=== PATIENT | female | born 1975 | race Caucasian/White ===

== ENCOUNTER → 2017-11-01 | Outpatient (CLI) | payer OTHER ==
[~2017-11-01] MED LIST: 0.9 % SODIUM CHLORIDE 10 ML VIAL ONE; IOHEXOL 300 MG/ML 50 ML VIAL. ONE; LIDOCAINE 1% PF 30 ML VIAL. ONE; methylPREDNISolone ACETATE 80 MG/ML VIAL. ONE
== END | disposition home or self-care (01) ==
LOC: SURG 11:24
PROVIDERS: ATTEND Anesthesiology Pain Medicine
DX: M54.16 Radiculopathy, lumbar region (principal); M19.90 Unspecified osteoarthritis, unspecified site; F17.210 Nicotine dependence, cigarettes, uncomplicated; Z79.899 Other long term (current) drug therapy
CPT/HCPCS: 62323; J1040; J2001; Q9967; 99203

== ENCOUNTER 2018-02-05 14:29 | Emergency (ER) | payer OTHER ==
[~2018-02-05] VITALS: Ht 167.6 cm; Wt 86.2 kg
[2018-02-05 14:37] VITALS: BP 148/93
--- NOTE | 2018-02-05 16:33 | ED.ADGEN ---
Past History Past Medical History: No Pertinent History Past Surgical History: No Surgical History Alcohol Use: None Drug Use: None Adult General Chief Complaint Chief Complaint Hand laceration [facility] Patient is a 42-year-old female who presents with 1 cm laceration above extensor left fourth PIP joint and 2.5 cm superficial extensor surface of left third finger from about her enough while removing cocking in the kitchen. Tetanus is up-to-date. Bleeding is controlled. No other symptoms or complaints. Injury occurred just prior to that not not the foot of the hand that was earlier today. [] Review of Systems Review of Systems ROS as per HPI All other systems were reviewed and found to be within normal limits, except as documented in this note. Allergies Allergies Allergies Coded Allergies Type Severity Reaction Last Updated Verified No Known Drug Allergies 02/05/18 No Physical Exam Physical Exam Constitutional: Well developed, well nourished, no acute distress, non-toxic appearance. [] HENT: Normocephalic, atraumatic, bilateral external ears normal, oropharynx moist, no oral exudates, nose normal. [] Extremities: 1 cm, curvilinear laceration above left fourth PIP joint, full thickness, no joint capsule penetration, bleeding controlled. Wound is clean. 2.5 superficial clean linear laceration over dorsum of the third finger. Bleeding controlled. [] Neurologic: Alert and oriented X 3, normal motor function, normal sensory function, no focal deficits noted. [] Psychologic: Affect normal, judgement normal, mood normal. [] Current Patient Data Vital Signs Vital Signs Date Time Temp Pulse Resp B/P (MAP) Pulse Ox O2 Delivery O2 Flow Rate FiO2 02/05/18 14:37 98.1 86 18 95 Room Air EKG EKG [] Radiology/Procedures Radiology/Procedures [Laceration repair procedure note. Patient's lacerations were copiously irrigated and explored, left fourth finger was closed with 2 simple and interrupted, 4-0 nylon sutures. Good wound approximation and mobility in joint. Left third finger laceration was and closed with wound adhesive. Bleeding is controlled.] Course & Med Decision Making Course & Med Decision Making Pertinent Labs and Imaging studies reviewed. (See chart for details) [Wounds cleaned and closed. Typical wound care instructions given. ] Final Impression Final Impression [1. Lacerations to third and fourth left fingers.] Dragon Disclaimer Dragon Disclaimer This electronic medical record was generated, in whole or in part, using a voice recognition dictation system. MAURO WEST DO Feb 05, 2018 16:33
== END 2018-02-05 15:14 | disposition home or self-care (01) ==
LOC: ER 14:29
DX: S61.213A Laceration without foreign body of left middle finger without damage to nail, initial encounter (principal); S61.215A Laceration without foreign body of left ring finger without damage to nail, initial encounter; W45.8XXA Other foreign body or object entering through skin, initial encounter; Y93.89 Activity, other specified; Y99.8 Other external cause status; Y92.090 Kitchen in other non-institutional residence as the place of occurrence of the external cause
CPT/HCPCS: 12001; 12002; 99283; 99284

== ENCOUNTER → 2018-08-15 | Outpatient (CLI) | payer OTHER | END | disposition home or self-care (01) | LOC: SURG 08:42 | PROVIDERS: ATTEND Anesthesiology Pain Medicine | DX: M47.816 Spondylosis without myelopathy or radiculopathy, lumbar region (principal); M19.90 Unspecified osteoarthritis, unspecified site; G89.4 Chronic pain syndrome; F11.90 Opioid use, unspecified, uncomplicated | CPT/HCPCS: 99214 ==

== ENCOUNTER 2018-11-17 10:42 | Emergency (ER) | payer OTHER ==
[~2018-11-17] VITALS: Ht 154.9 cm; Wt 80.1 kg
[2018-11-17 10:45] VITALS: BP 124/70
--- NOTE | 2018-11-17 11:24 | PHYS DOC ---
Past History Past Medical History: No Pertinent History Past Surgical History: Hysterectomy Alcohol Use: None Drug Use: None Adult General Chief Complaint Chief Complaint: LACERATION/AVULSION HPI HPI 42-year-old female presents with right index finger laceration. The patient was carrying a fire hydrant and it slipped and fell onto her. It caused a laceration on the distal, volar side of her index finger. Lacerations about 1 cm long. The patient was able to get stop bleeding with simple pressure. She does not have very much pain. She does not believe the finger is broken. She denies any other injuries or complaints. Review of Systems Review of Systems Constitutional: Denies fever or chills [] Eyes: Denies change in visual acuity, redness, or eye pain [] HENT: Denies nasal congestion or sore throat [] Respiratory: Denies cough or shortness of breath [] Cardiovascular: No additional information not addressed in HPI [] GI: Denies abdominal pain, nausea, vomiting, bloody stools or diarrhea [] : Denies dysuria or hematuria [] Musculoskeletal: Denies back pain or joint pain [] Integument: Laceration right index finger[] Neurologic: Denies headache, focal weakness or sensory changes [] Endocrine: Denies polyuria or polydipsia [] All other systems were reviewed and found to be within normal limits, except as documented in this note. Allergies Allergies Allergies Coded Allergies Type Severity Reaction Last Updated Verified No Known Drug Allergies 02/05/18 No Physical Exam Physical Exam Constitutional: Well developed, well nourished, no acute distress, non-toxic appearance. [] HENT: Normocephalic, atraumatic, bilateral external ears normal, oropharynx moist, no oral exudates, nose normal. [] Eyes: PERRLA, EOMI, conjunctiva normal, no discharge. [] Neck: Normal range of motion, no tenderness, supple, no stridor. [] Cardiovascular:Heart rate regular rhythm, no murmur [] Lungs & Thorax: Bilateral breath sounds clear to auscultation [] Abdomen: Bowel sounds normal, soft, no tenderness, no masses, no pulsatile masses. [] Skin: One centimeter linear laceration right index finger, volar side.[] Back: No tenderness, no CVA tenderness. [] Extremities: No tenderness, no cyanosis, no clubbing, ROM intact, no edema. [] Neurologic: Alert and oriented X 3, normal motor function, normal sensory function, no focal deficits noted. [] Psychologic: Affect normal, judgement normal, mood normal. [] Current Patient Data Vital Signs Vital Signs Date Time Temp Pulse Resp B/P (MAP) Pulse Ox O2 Delivery O2 Flow Rate FiO2 11/17/18 10:45 76 16 98 Room Air EKG EKG [] Radiology/Procedures Radiology/Procedures [] Impressions: Preliminary interpretation: No acute fracture or dislocation is seen. Course & Med Decision Making Course & Med Decision Making Pertinent Labs and Imaging studies reviewed. (See chart for details) I was able to repair the wound with sutures. See note below for more details. A foam and aluminum splint was given to the patient for comfort and protection of the area. A Tdap was given in the ED. No fracture was seen on x-ray. The patient is stable for discharge at this time. [] Dragon Disclaimer Dragon Disclaimer This electronic medical record was generated, in whole or in part, using a voice recognition dictation system. Laceration Repair Lac Repair Indication: [1 cm linear laceration of the distal, volar, index finger; right hand] Procedure: Verbal consent was obtained from the patient for suture repair of her right index finger laceration. Wound was thoroughly irrigated with normal saline under pressure. No foreign objects were found. 1% lidocaine without epinephrine was used for anesthesia. A total of 1 mL was used. After good anesthesia was achieved, I was able to repair the laceration with 2 4-0 Ethilon sutures in interrupted fashion. There is good skin approximation. Bleeding was controlled. Wound was then covered in antibiotic ointment and a clean dressing.] . Total repaired wound length: Centimeter. Other Items: None] The patient tolerated the procedure well. Complications: [None]. Departure Departure: Impression: Primary Impression: Laceration of right index finger Disposition: HOME, SELF-CARE Condition: IMPROVED Referrals: DAVID URBANO DO, MPH (PCP) Patient Instructions: Laceration Care, Adult, [id number] Problem Qualifiers Primary Impression: Laceration of right index finger Encounter type: initial encounter Damage to nail status: without damage Foreign body presence: without foreign body Qualified Codes: S61.210A - Laceration without foreign body of right index finger without damage to nail, initial encounter MAURO CAMPOS DO Nov 17, 2018 11:24
--- NOTE | 2018-11-17 11:36 | RAD ---
Examination: FINGER(S) RIGHT History: right hand/index finger pain/laceration, pt shielded Comparison/Correlation: None Findings: Portable frontal view right hand was obtained. Lateral and oblique view of the second digit were provided. Total 3 images provided. Degenerative changes of the second digit distal insular frontal joint are present and mild. Spurring is notable involving the base of the distal phalanx. No fracture or bony destruction. No radiopaque foreign body. Impression: Degenerative changes of the second digit distal interphalangeal joint. No acute process. Electronically signed by: Sadiq Alvarez MD (11/17/2018 11:33 AM) [facility]
[2018-11-17] MEDS ORDERED: NEOMY/BACITR/POLYMYXIN OINT PACKET. TP ONE (11:45)
[2018-11-17] MEDS ORDERED: DIPHTH,PERTUSS(ACELL),TET TOX 0.5 ML DISP.SYRIN. VAX IM ONE (11:45)
== END 2018-11-17 11:38 | disposition home or self-care (01) ==
LOC: ER 10:42
DX: S61.210A Laceration without foreign body of right index finger without damage to nail, initial encounter (principal); W26.8XXA Contact with other sharp object(s), not elsewhere classified, initial encounter; Y93.89 Activity, other specified; Y92.89 Other specified places as the place of occurrence of the external cause; Y99.8 Other external cause status
CPT/HCPCS: 12001; 73140; 90471; 90715; 99283-25

== ENCOUNTER → 2019-01-24 | Outpatient (CLI) | payer OTHER | END | disposition home or self-care (01) | LOC: SURG 14:26 | PROVIDERS: ATTEND Anesthesiology Pain Medicine | DX: M51.17 Intervertebral disc disorders with radiculopathy, lumbosacral region (principal); M47.816 Spondylosis without myelopathy or radiculopathy, lumbar region; F11.90 Opioid use, unspecified, uncomplicated; G89.4 Chronic pain syndrome; Z79.899 Other long term (current) drug therapy | CPT/HCPCS: 99214 ==